=== PATIENT | male | born 1930 | race Two or more races ===

== ENCOUNTER 2018-03-18 17:02 | Inpatient (IN) | payer MEDICARE, MEDICAID ==
[~2018-03-18] VITALS: Ht 170.2 cm; Wt 74.8 kg
--- NOTE | 2018-03-18 17:08 | NUR ---
BIBRA FOR SYNCOPAL EPISODE AT HOME X 2. ABRASION NOTED TO FOREHEAD. TO ER BED 8, HOOKED TO MONITOR, CHANGED TO GOWN, AWAITING MD JAMES
--- NOTE | 2018-03-18 17:25 | NUR ---
DR NEWTON AT BEDSIDE
[2018-03-18 17:29] LABS: BASOPHILS % (AUTO) 0.5 % (0.0-2.0); EOSINOPHILS % (AUTO) 0.1 % (0.0-6.0); HEMATOCRIT 39 % (39-51); HEMOGLOBIN 13.1 g/dL (13.5-17.5); LYMPHOCYTES # (AUTO) 0.5 /CMM (0.8-4.8); LYMPHOCYTES % (AUTO) 6.3 % (20.0-44.0); MEAN CORPUSCULAR HGB CONC 34 g/dl (31.0-36.0); MEAN CORPUSCULAR VOLUME 86 fL (80-96); MONOCYTES # (AUTO) 0.4 /CMM (0.1-1.30); NEUTROPHILS # (AUTO) 7.3 /CMM (1.8-8.9); NEUTROPHILS % (AUTO) 88.1 % (43.0-81.0); PLATELET COUNT (AUTO) 190 /CMM (150-450); RED BLOOD CELL COUNT(AUTO) 4.52 MIL/uL (4.5-6.0); WHITE BLOOD COUNT (AUTO) 8.3 K/uL (4.3-11.0)
[2018-03-18] MEDS ORDERED: IV NS 0.9% 500 ML BAG IV ONE (17:30)
[2018-03-18 17:35] LABS: CALCIUM, SERUM 9.1 mg/dL (8.5-10.1); CARBON DIOXIDE 27 mmol/L (21-32); CHLORIDE 100 mmol/L (98-107); CREATININE 1.2 mg/dL (0.6-1.3); GLUCOSE 110 mg/dL (74-106); POTASSIUM 3.9 mmol/L (3.5-5.1); SODIUM SERUM 137 mmol/L (136-145); UREA NITROGEN, BLOOD 41 mg/dL (7-18)
[2018-03-18 17:49] LABS: ALANINE AMINOTRANSFERASE 97 U/L (12-78); ALBUMIN 2.8 g/dL (3.4-5.0); ALKALINE PHOSPHATASE 149 U/L (46-116); ASPARTATE AMINOTRANSFERASE 108 U/L (15-37); BILIRUBIN,DIRECT 0.4 mg/dL (0.0-0.2); BILIRUBIN,TOTAL 1.7 mg/dL (0.2-1.0)
[2018-03-18] MEDS ORDERED: IOHEXOL-300 100 ML VIAL IV ONE (17:58)
[2018-03-18] MEDS ORDERED: IV NS 0.9% 250 ML IV ONE (17:58)
[2018-03-18] MEDS ORDERED: CT SWABBABLE VALVE TRANS SET 1 EA INFUS.SET MC ONE (17:58)
[2018-03-18] MEDS ORDERED: IV NS 0.9% 1,000 ML BAG IV ONE (18:30)
[2018-03-18] MEDS ORDERED: PIPERACILLIN /TAZOBACTAM 3.375 G VIAL IV ONE (19:28)
[2018-03-18] MEDS ORDERED: PIPERACILLIN /TAZOBACTAM 3.375 G in IV D5W 50 ML IV ONE (19:30)
--- NOTE | 2018-03-18 19:30 | NUR ---
REPORT GIVEN TO NATASHA TORRES FOR MONIKA
--- NOTE | 2018-03-18 19:35 | NUR ---
Received pt from BRIAN Quintana. Pt is resting comfortably, family at BS to tanslate. No acute distress noted at this time .
--- NOTE | 2018-03-18 19:44 | NUR ---
CALLED NURSING SUP REQUESTED TELE BED
--- NOTE | 2018-03-18 20:40 | NUR ---
Family reported pt hasn't voided since 10:00 pm last night. Took out 700 ml of juvencio colored urine through I & O per Dr. Garza's verbal order.Pt tolerated procedure.
--- NOTE | 2018-03-18 20:50 | NUR ---
Pt will be admitted to [facility] 304-1 . Pt and family members notified. Removed 700 ml of Ronni colored urine from I & O, per verbal order of Dr. Rios.
--- NOTE | 2018-03-18 21:10 | NUR ---
Report given to BRIAN Ruff.
--- NOTE | 2018-03-18 21:50 | NUR ---
transprted pt to [facility] 304-1 via gurney under ACLS protocol with Sterling. Pt left the unit in fair condition accompanied by family members. VSS
[2018-03-18 22:00] VITALS: BP 97/62
[2018-03-19] MEDS ORDERED: DEXTROSE 50%-WATER 50 ML DISP.SYRIN IV PRN
[2018-03-19 00:02] VITALS: BP 116/72
[2018-03-19] MEDS: IV NS 0.9% 1,000 ML IV PRN ×2 (00:40→19:04)
[2018-03-19] MEDS: BLOOD SUGAR DIAGNOSTIC 1 EACH STRIP IN SCH ×4 (00:40→18:29)
[2018-03-19] MEDS: PANTOPRAZOLE 40 MG VIAL IV SCH (00:42)
[2018-03-19] MEDS ORDERED: PIPERACILLIN /TAZOBACTAM 3.375 G VIAL IV ONE ×2 (00:50→05:23)
[2018-03-19] MEDS: PIPERACILLIN /TAZOBACTAM 3.375 G in IV D5W 50 ML IV SCH ×2 (00:57→05:33)
[2018-03-19 02:29] LABS: APPEARANCE,URINE CLEAR (CLEAR); BILIRUBIN,URINE 1+ (NEGATIVE); BLOOD, URINE 2+ Ery/uL (NEGATIVE); COLOR,URINE DARK YELLO (YELLOW); KETONES,URINE 1+ (NEGATIVE); LEUKOCYTE ESTERASE ,URINE NEGATIVE (NEGATIVE); NITRITE, URINE NEGATIVE (NEGATIVE); PH,URINE 6.5 (5.0-8.0); PROTEIN,URINE 1+ mg/dl (NEGATIVE); UGLUCOSE NEGATIVE (NEGATIVE)
[2018-03-19 02:34] LABS: BACTERIA,URINE Rare /HPF (None Seen)
[2018-03-19 02:35] LABS: SQUAMOUS EPITHELIAL CELL,UR Rare /HPF (None Seen); WBC,URINE 21-50 /HPF (0-3)
[2018-03-19 04:00] VITALS: BP_SYST 104; BP_SYST 132; BP_DIAS 58; BP_DIAS 62
--- NOTE | 2018-03-19 06:25 | NUR ---
METHODS SPECIALIST NOTES AWAKE & RESPONSIVE. NOT IN ANY DISTRESS. NO SOB NOTED. DENIES ANY PAIN OR DISCOMFORT AT THIS TIME. ON TELE AFIB @ 80S WITH IVF INFUSING WELL. AM CARE DONE. MONITORED ACCORDINGLY. CALL LIGHT WITHIN REACH. BED IN LOWEST POSITION. SR UP X 3 WITH BED ALARM ON FOR SAFETY. WILL ENDORSE TO NEXT SHIFT.
--- NOTE | 2018-03-19 07:15 | NUR ---
TELE/RN OPENING NOTE THE PATIENT IS RECEIVED AWAKE IN BED. ALERT AND ORIENTED X1. REORIENTATION AND REDIRECTION PROVIDED. IN ROOM AIR AND DENIES SOB. RESPIRATION REGULAR AND UNLABORED. DENIES PAIN. EXTERNAL TELE MONITOR READING IS AFIB WITH PVC 88. THE PATIENT IN NO APPARENT DISTRESS. IV FLUID INFUSING AT 125ML/HR AND NO S/S INFILTRATION NOTED. BED LOW AND LOCKED. SIDE RAILS UP X3. CALL LIGHT WITHIN REACH. WILL CONTINUE TO MONITOR.
[2018-03-19 08:00] VITALS: BP 109/64
[2018-03-19] MEDS ORDERED: LEVO50TA8 PO (09:19)
[2018-03-19] MEDS ORDERED: DUTA0.5C15 PO (09:19)
[2018-03-19] MEDS ORDERED: PRAM0.253 PO (09:19)
[2018-03-19] MEDS ORDERED: LORA0.5T PO (09:19)
[2018-03-19] MEDS ORDERED: BUSP10TA3 PO (09:19)
[2018-03-19] MEDS ORDERED: ESOM40CA52 PO (09:19)
[2018-03-19] MEDS ORDERED: ALBU18HF2 INH (09:19)
[2018-03-19] MEDS ORDERED: CHOL100044 PO (09:19)
[2018-03-19] MEDS ORDERED: ISOS60TA4 PO (09:19)
[2018-03-19] MEDS ORDERED: ROSU5TAB12 PO (09:19)
[2018-03-19] MEDS ORDERED: ATEN25TA PO (09:19)
[2018-03-19] MEDS ORDERED: TAMS0.4C34 PO (09:19)
[2018-03-19] MEDS ORDERED: DOCU250C14 PO (09:19)
[2018-03-19] MEDS ORDERED: RIVA10TA PO (09:19)
[2018-03-19] MEDS ORDERED: ZOLP10TA6 PO (09:27)
[2018-03-19] MEDS ORDERED: LEVO500T90 PO (09:27)
--- NOTE | 2018-03-19 09:45 | NUR ---
TELE/RN NOTE PER CEMENTER HELPER MARY THE PATIENT IS PLACED NPO AFTER BREAKFAST DUE TO HIDA SCAN. NOTED AND CARRIED OUT.
[2018-03-19] MEDS: TAMSULOSIN 0.4 MG CAP.SR.24H PO SCH (10:00)
[2018-03-19] MEDS: CHOLECALCIFEROL 1,000 UNIT TABLET (VIT D3) PO SCH (10:00)
[2018-03-19] MEDS: LEVOTHYROXINE SODIUM 50 MCG TABLET PO SCH (10:00)
[2018-03-19] MEDS ORDERED: LORAZEPAM 0.5 MG TABLET PO PRN (10:00)
[2018-03-19] MEDS: DUTASTERIDE (0.5 MG) 0.5 MG CAPSULE PO SCH (10:00)
[2018-03-19] MEDS ORDERED: ALBUTEROL FS 2.5 MG/3 ML VIAL.NEB IH PRN (10:00)
[2018-03-19] MEDS: PRAMIPEXOLE DI-HCL 0.25 MG TABLET PO SCH ×2 (10:00→18:29)
[2018-03-19] MEDS: ATENOLOL 25 MG TABLET PO SCH (10:00)
[2018-03-19] MEDS ORDERED: Medication Not On Formulary EA (Esomeprazole Magnesium 40 MG) PO SCH (10:00)
[2018-03-19] MEDS ORDERED: DOCUSATE SODIUM 250 MG CAPSULE PO PRN (10:00)
--- NOTE | 2018-03-19 10:30 | NUR ---
MS/RN NOTE MATERIALS MANAGEMENT SUPERVISOR MARY IS MADE AWARE OF TROPONIN LEVEL OF 0.438. PER MATERIALS MANAGEMENT SUPERVISOR NO NEW ORDER. THE PATIENT MAINTAINS BASELINE MENTAL STATUS. DENIES ANY PAIN/DISCOMFORT. IN ROOM AIR AND SATURATION AT 97%. RESPIRATION REGULAR AND UNLABORED. WILL CONTINUE TO MONITOR.
[2018-03-19] MEDS: PIPERACILLIN /TAZOBACTAM 3.375 G in IV D5W 100 ML IV SCH ×2 (12:13→21:01)
--- NOTE | 2018-03-19 15:29 | NUR ---
MS/RN NOTE RECEIVED ORDER FROM PANFILO HERNANDEZ FOR [facility] SOFT DIET. THE ORDER IS READ BACK, VERIFIED. NOTED AND CARRIED OUT.
--- NOTE | 2018-03-19 15:43 | NUR ---
MS/RN NOTE RECEIVED ORDER FROM PANFILO HERNANDEZ FOR TYLENOL 650 MG Q6HR PRN PO. READ BACK, VERIFIED. NOTED AND CARRIED OUT.
[2018-03-19 16:00] VITALS: BP 110/68
[2018-03-19] MEDS: ACETAMINOPHEN 325 MG TABLET PO PRN (16:04)
[2018-03-19] MEDS: busPIRone 5 MG TABLET PO SCH (16:04)
--- NOTE | 2018-03-19 18:58 | NUR ---
MS/RN CLOSING NOTE THE PATIENT ALERT AND ORIENTED X2. IN ROOM AIR AND SATURATION AT 97%. DENIES SOB. DENIES PAIN. RFA G 18 AND LFA G 20 PATENT AND SALINE LOCKED. GOOD AND GENTLE SKIN CARE PROVIDED. KEPT CLEAN AND COMFORTABLE. ALL NEEDS ATTENDED. BED LOW AND LOCKED. SIDE RAILS UP X3. CALL LIGHT WITHIN REACH. WILL ENDORSE TO MOTOR COACH DRIVER.
--- NOTE | 2018-03-19 19:30 | NUR ---
MS/RN OPENING NOTES PT WITH EYES CLOSED, OPENS EYES TO NAME. RESTING COMFORTABLY IN BED. QATARI SPEAKING. CONFUSED. ON ROOM AIR, BREATHING EVEN AND UNLABORED. NO S/S OF SOB OR PAIN. IN NO ACUTE DISTRESS. IV TO LFA AND RFA PATENT AND INTACT RUNNING IVF ORDERED. BED IN LOW/LOCKED POSITION WITH CALL LIGHT IN REACH, UPPER SIDE RAILS IN PLACE. BED ALARM ON FOR SAFETY. WILL CONTINUE TO MONITOR
[2018-03-19 20:00] VITALS: BP 106/58
[2018-03-20] MEDS: BLOOD SUGAR DIAGNOSTIC 1 EACH STRIP IN SCH ×5 (00:26→23:07)
[2018-03-20] MEDS: PANTOPRAZOLE 40 MG VIAL IV SCH (00:56)
[2018-03-20] MEDS: PIPERACILLIN /TAZOBACTAM 3.375 G in IV D5W 100 ML IV SCH ×2 (04:48→13:16)
[2018-03-20 06:37] LABS: BASOPHILS % (AUTO) 0.5 % (0.0-2.0); EOSINOPHILS % (AUTO) 1.3 % (0.0-6.0); HEMATOCRIT 39 % (39-51); LYMPHOCYTES # (AUTO) 0.7 /CMM (0.8-4.8); LYMPHOCYTES % (AUTO) 7.6 % (20.0-44.0); MEAN CORPUSCULAR HGB CONC 34 g/dl (31.0-36.0); MEAN CORPUSCULAR VOLUME 85 fL (80-96); MONOCYTES # (AUTO) 0.4 /CMM (0.1-1.30); MONOCYTES % (AUTO) 4.5 % (2.0-12.0); NEUTROPHILS # (AUTO) 7.5 /CMM (1.8-8.9); NEUTROPHILS % (AUTO) 86.1 % (43.0-81.0); PLATELET COUNT (AUTO) 276 /CMM (150-450); RED BLOOD CELL COUNT(AUTO) 4.52 MIL/uL (4.5-6.0); WHITE BLOOD COUNT (AUTO) 8.8 K/uL (4.3-11.0)
[2018-03-20 06:52] LABS: ALANINE AMINOTRANSFERASE 79 U/L (12-78); ALBUMIN 2.4 g/dL (3.4-5.0); ALKALINE PHOSPHATASE 185 U/L (46-116); ASPARTATE AMINOTRANSFERASE 47 U/L (15-37); BILIRUBIN,TOTAL 1.2 mg/dL (0.2-1.0); CALCIUM, SERUM 8.6 mg/dL (8.5-10.1); CARBON DIOXIDE 26 mmol/L (21-32); CHLORIDE 109 mmol/L (98-107); CREATININE 0.8 mg/dL (0.6-1.3); GLUCOSE 86 mg/dL (74-106); MAGNESIUM 1.9 mg/dL (1.8-2.4); PHOSPHORUS 1.8 mg/dL (2.5-4.9); POTASSIUM 2.9 mmol/L (3.5-5.1); SODIUM SERUM 147 mmol/L (136-145); UREA NITROGEN, BLOOD 23 mg/dL (7-18)
[2018-03-20 06:55] LABS: FREE PSA 0.77 ng/mL (0.00-45); PROSTATE SPECIFIC ANTIGEN SCR 8.02 ng/mL (0.00-4.00); THYROID STIMULATING HORMONE 6.18 uIU/mL (0.358-3.74)
--- NOTE | 2018-03-20 07:17 | NUR ---
MS/RN CLOSING NOTES PT RESTING COMFORTABLY IN BED. MONEGASQUE SPEAKING. CONFUSED. ON ROOM AIR, BREATHING EVEN AND UNLABORED. NO S/S OF SOB OR PAIN. IN NO ACUTE DISTRESS. IV TO LFA INFILTRATED, IV TO RFA PATENT AND INTACT RUNNING IVF ORDERED. NO SIGNIFICANT CHANGES OVERNIGHT. ALL NEEDS MET. BED IN LOW/LOCKED POSITION WITH CALL LIGHT IN REACH, UPPER SIDE RAILS IN PLACE. BED ALARM ON FOR SAFETY. ENDORSED TO DAY SHIFT RN MONIKA.
[2018-03-20 08:00] VITALS: BP 128/66
[2018-03-20] MEDS: busPIRone 5 MG TABLET PO SCH ×2 (08:48→17:35)
[2018-03-20] MEDS: DUTASTERIDE (0.5 MG) 0.5 MG CAPSULE PO SCH (08:48)
[2018-03-20] MEDS: POTASSIUM CHLORIDE 20 MEQ TAB.PRT.SR PO SCH ×3 (08:48→10:30)
[2018-03-20] MEDS: TAMSULOSIN 0.4 MG CAP.SR.24H PO SCH (08:48)
[2018-03-20] MEDS: LEVOTHYROXINE SODIUM 50 MCG TABLET PO SCH (08:48)
[2018-03-20] MEDS: CHOLECALCIFEROL 1,000 UNIT TABLET (VIT D3) PO SCH (08:48)
[2018-03-20] MEDS: NEUTRA PHOS 1 POWD.PACKET PO SCH ×2 (08:49→17:35)
[2018-03-20] MEDS: ATENOLOL 25 MG TABLET PO SCH (08:49)
[2018-03-20] MEDS: Potassium Chloride 20 MEQ in IV D5/0.45 NACL 1,000 ML IV PRN (12:46)
[2018-03-20 16:00] VITALS: BP 133/86
--- NOTE | 2018-03-20 16:04 | NUR ---
MS/RN NOTE RECEIVED ORDER FROM PANFILO HERNANDEZ FOR WILLIAMS. THE ORDER IS READ BACK, VERIFIED. NOTED AND CARRIED OUT.
[2018-03-20] MEDS ORDERED: MAGNESIUM HYDROXIDE 30 ML UDC PO PRN (16:30)
[2018-03-20] MEDS: PRAMIPEXOLE DI-HCL 0.25 MG TABLET PO SCH (17:35)
--- NOTE | 2018-03-20 18:02 | NUR ---
MS/RN NOTE THE PATIENT ALERT AND ORIENTED X2. DENIES PAIN AT THIS TIME. IN ROOM AIR AND SATURATION IS AT 95%. DENIES SOB AT THIS TIME. RFA G 18 AND LFA G 20 PATENT AND MEDICATIONS ARE INFUSING PER ORDER. NO S/S INFILTRATION NOTED. GOOD AND GENTLE SKIN CARE RENDERED. KEPT CLEAN, DRY AND COMFORTABLE. ALL NEEDS ATTENDED AND ANTICIPATED. BED LOW AND LOCKED. SIDE RAILS UP X3. CALL LIGHT WITHIN REACH. WILL ENDORSE TO STAFFING ASSISTANT.
--- NOTE | 2018-03-20 19:30 | NUR ---
MS/RN OPENING NOTES PT AWAKE. RESTING COMFORTABLY IN BED. CYMRO SPEAKING. A/X2. ON ROOM AIR, BREATHING EVEN AND UNLABORED. NO S/S OF SOB OR PAIN. IN NO ACUTE DISTRESS. IV TO LFA AND RFA PATENT AND INTACT RUNNING IVF ORDERED. BED IN LOW/LOCKED POSITION WITH CALL LIGHT IN REACH, UPPER SIDE RAILS IN PLACE. BED ALARM ON FOR SAFETY. WILL CONTINUE TO MONITOR
[2018-03-20 20:00] VITALS: BP 101/82
[2018-03-20] MEDS: ZOLPIDEM TARTRATE 10 MG TABLET PO PRN (23:07)
[2018-03-21] MEDS: PANTOPRAZOLE 40 MG VIAL IV SCH (00:21)
[2018-03-21] MEDS: LORAZEPAM 1 MG TABLET PO PRN (00:21)
[2018-03-21 06:04] LABS: BASOPHILS % (AUTO) 0.6 % (0.0-2.0); EOSINOPHILS % (AUTO) 1.7 % (0.0-6.0); HEMATOCRIT 38 % (39-51); HEMOGLOBIN 12.7 g/dL (13.5-17.5); LYMPHOCYTES % (AUTO) 13.4 % (20.0-44.0); MEAN CORPUSCULAR HGB CONC 34 g/dl (31.0-36.0); MEAN CORPUSCULAR VOLUME 85 fL (80-96); MONOCYTES # (AUTO) 0.5 /CMM (0.1-1.30); MONOCYTES % (AUTO) 7.4 % (2.0-12.0); NEUTROPHILS # (AUTO) 5.5 /CMM (1.8-8.9); NEUTROPHILS % (AUTO) 76.9 % (43.0-81.0); PLATELET COUNT (AUTO) 263 /CMM (150-450); RED BLOOD CELL COUNT(AUTO) 4.46 MIL/uL (4.5-6.0); WHITE BLOOD COUNT (AUTO) 7.1 K/uL (4.3-11.0)
[2018-03-21 06:05] LABS: ALANINE AMINOTRANSFERASE 74 U/L (12-78); ALBUMIN 2.2 g/dL (3.4-5.0); ALKALINE PHOSPHATASE 246 U/L (46-116); ASPARTATE AMINOTRANSFERASE 47 U/L (15-37); CALCIUM, SERUM 8.6 mg/dL (8.5-10.1); CARBON DIOXIDE 27 mmol/L (21-32); CHLORIDE 107 mmol/L (98-107); CREATININE 0.7 mg/dL (0.6-1.3); GLUCOSE 117 mg/dL (74-106); MAGNESIUM 1.8 mg/dL (1.8-2.4); PHOSPHORUS 1.9 mg/dL (2.5-4.9); POTASSIUM 3.4 mmol/L (3.5-5.1); SODIUM SERUM 142 mmol/L (136-145); TOTAL PROTEIN, SERUM 5.7 g/dL (6.4-8.2); UREA NITROGEN, BLOOD 19 mg/dL (7-18)
[2018-03-21] MEDS: BLOOD SUGAR DIAGNOSTIC 1 EACH STRIP IN SCH ×3 (06:35→17:23)
[2018-03-21] MEDS: Potassium Chloride 20 MEQ in IV D5/0.45 NACL 1,000 ML IV PRN (06:35)
--- NOTE | 2018-03-21 06:35 | NUR ---
MS/RN CLOSING NOTES PT RESTING COMFORTABLY IN BED. ON ROOM AIR, BREATHING EVEN AND UNLABORED. DENIES SOB, NO SOB NOTED. IN NO ACUTE DISTRESS. SLEPT WELL DURING SHIFT. IV TO RFA PATENT AND INTACT RUNNING IVF ORDERED. NO SIGNIFICANT CHANGES OVERNIGHT. ALL NEEDS MET. BED IN LOW/LOCKED POSITION WITH CALL LIGHT IN REACH. SIDE RIALS UPX2. WILL ENDORSE TO DAY SHIFT RN MONIKA.
--- NOTE | 2018-03-21 07:49 | NUR ---
MS RN OPENING NOTES RECEIVED PATIENT IN STABLE CONDITION. IN NO APPARENT DISTRESS. BEDSIDE RAILS ARE UPX2. BED IS LOCKED AND LOWERED. CALL LIGHT IS WITHIN REACH. IV LINE IS INTACT AND PATENT. WILL CONTINUE TO MONITOR PATIENT.
[2018-03-21 08:00] VITALS: BP 128/74
[2018-03-21] MEDS ORDERED: POTASSIUM CHLORIDE 20 MEQ TAB.PRT.SR PO SCH (08:00)
[2018-03-21] MEDS: busPIRone 5 MG TABLET PO SCH ×2 (09:03→17:18)
[2018-03-21] MEDS: CHOLECALCIFEROL 1,000 UNIT TABLET (VIT D3) PO SCH (09:03)
[2018-03-21] MEDS: ATENOLOL 25 MG TABLET PO SCH (09:04)
[2018-03-21] MEDS: TAMSULOSIN 0.4 MG CAP.SR.24H PO SCH (09:04)
[2018-03-21] MEDS: LEVOTHYROXINE SODIUM 50 MCG TABLET PO SCH (09:04)
[2018-03-21] MEDS: FERROUS SULFATE (325 MG) 325 MG/TAB TABLET PO SCH ×2 (09:04→17:18)
[2018-03-21] MEDS: DUTASTERIDE (0.5 MG) 0.5 MG CAPSULE PO SCH (09:04)
[2018-03-21] MEDS: RIVAROXABAN 15 MG TABLET PO SCH (09:07)
[2018-03-21] MEDS: NEUTRA PHOS 1 POWD.PACKET PO SCH ×2 (09:08→15:46)
[2018-03-21] MEDS ORDERED: NEUTRA PHOS 1 POWD.PACKET PO ONE (09:30)
[2018-03-21] MEDS: INSULIN REGULAR, HUMAN 100 UNIT/ML 3 ML VIAL SQ PRN (12:24)
[2018-03-21 13:08] LABS: AFP, TUMOR MARKER 1.4 ng/mL (0.0-8.3)
[2018-03-21 16:00] VITALS: BP 116/66
[2018-03-21] MEDS: PRAMIPEXOLE DI-HCL 0.25 MG TABLET PO SCH (17:18)
--- NOTE | 2018-03-21 18:23 | NUR ---
MS RN CLOSING NOTES PATIENT IS IN STABLE CONDITION. IN NO APPARENT DISTRESS. BEDSIDE RAILS ARE UPX2. BED IS LOCKED AND LOWERED. CALL LIGHT IS WITHIN REACH. IV LINE IS INTACT AND PATENT. ALL NEEDS WERE MET. WILL ENDORSE CARE TO SALON SUPERVISOR NURSE FOR MONIKA.
--- NOTE | 2018-03-21 19:30 | NUR ---
MS RN NOTE: PATIENT RESTING IN BED, NO ACUTE DISTRESS NOTED. BREATHING EVEN AND UNLABORED, NO SOB NOTED. IV TO LFA IN PLACE. BED LOCKED AND IN LOWEST POSITION, CALL LIGHT IN REACH. WILL CONTINUE TO MONITOR.
[2018-03-21 20:00] VITALS: BP 125/72
[2018-03-21] MEDS: ZOLPIDEM TARTRATE 10 MG TABLET PO PRN (22:06)
--- NOTE | 2018-03-21 22:15 | NUR ---
MS RN NOTE: PATIENT REQUESTING FOR SLEEPING MEDICATION, AMBIEN 10MG 1 TAB ORAL GIVEN PER MD ORDER. WILL CONTINUE TO MONITOR.
[2018-03-22] MEDS: BLOOD SUGAR DIAGNOSTIC 1 EACH STRIP IN SCH ×4 (00:17→17:07)
[2018-03-22] MEDS: LORAZEPAM 1 MG TABLET PO PRN (00:17)
--- NOTE | 2018-03-22 00:30 | NUR ---
MS RN NOTE: PATIENT ANXIOUS AND REQUEST FOR MEDICATIONS. ATIVAN 1MG ORAL GIVEN PER MD ORDER. WILL CONTINUE TO MONITOR.
[2018-03-22] MEDS: Potassium Chloride 20 MEQ in IV D5/0.45 NACL 1,000 ML IV PRN (01:13)
--- NOTE | 2018-03-22 06:05 | NUR ---
MS RN NOTE: PATIENT RESTING IN BED, NO ACUTE DISTRESS NOTED. BREATHING EVEN AND UNLABORED, NO SOB NOTED. IV TO LFA IN PLACE. PATIENT BLOOD SUGAR LEVEL 97MG/DL, NO INSULIN NEEDED PER SLIDING SCALE. BED LOCKED AND IN LOWEST POSITION, CALL LIGHT IN REACH. WILL ENDORSE TO NURSE TO CONTINUE WITH PLAN OF CARE.
[2018-03-22 06:27] LABS: BASOPHILS # (AUTO) 0.1 /CMM (0.0-0.2); BASOPHILS % (AUTO) 0.8 % (0.0-2.0); EOSINOPHILS % (AUTO) 2.2 % (0.0-6.0); HEMATOCRIT 38 % (39-51); HEMOGLOBIN 12.8 g/dL (13.5-17.5); LYMPHOCYTES # (AUTO) 1.1 /CMM (0.8-4.8); LYMPHOCYTES % (AUTO) 16.6 % (20.0-44.0); MEAN CORPUSCULAR HGB CONC 33 g/dl (31.0-36.0); MEAN CORPUSCULAR VOLUME 85 fL (80-96); MONOCYTES # (AUTO) 0.5 /CMM (0.1-1.30); MONOCYTES % (AUTO) 7.3 % (2.0-12.0); NEUTROPHILS # (AUTO) 4.9 /CMM (1.8-8.9); NEUTROPHILS % (AUTO) 73.1 % (43.0-81.0); PLATELET COUNT (AUTO) 319 /CMM (150-450); RED BLOOD CELL COUNT(AUTO) 4.48 MIL/uL (4.5-6.0); WHITE BLOOD COUNT (AUTO) 6.7 K/uL (4.3-11.0)
[2018-03-22 06:33] LABS: CALCIUM, SERUM 8.3 mg/dL (8.5-10.1); CARBON DIOXIDE 26 mmol/L (21-32); CHLORIDE 107 mmol/L (98-107); CREATININE 0.6 mg/dL (0.6-1.3); GLUCOSE 110 mg/dL (74-106); POTASSIUM 3.8 mmol/L (3.5-5.1); SODIUM SERUM 142 mmol/L (136-145); UREA NITROGEN, BLOOD 17 mg/dL (7-18)
--- NOTE | 2018-03-22 07:25 | NUR ---
MS RN OPENING NOTE RECEIVED PT IN BED SLEEPING. BREATHING IS EVEN AND UNLABORED ON ROOM AIR, NO ACUTE DISTRESS NOTED AT THIS TIME. L FA #20G IV IS INFUSING D5 1/2 NS W/ 20 MEQ KCL @ 125ML/HR WITHOUT REDNESS OR SWELLING. ALL NEEDS ATTENDED TO. BED IS LOCKED AND IN LOWEST POSITION, SIDE RAILS UP X2, BED ALARM LINUX SYSTEM ADMINISTRATOR LIGHT AND POSSESSIONS WITHIN REACH.
[2018-03-22 08:00] VITALS: BP 123/79
[2018-03-22] MEDS: ATENOLOL 25 MG TABLET PO SCH (09:04)
[2018-03-22] MEDS: DUTASTERIDE (0.5 MG) 0.5 MG CAPSULE PO SCH (09:04)
[2018-03-22] MEDS: busPIRone 5 MG TABLET PO SCH ×2 (09:04→17:07)
[2018-03-22] MEDS: FERROUS SULFATE (325 MG) 325 MG/TAB TABLET PO SCH (09:04)
[2018-03-22] MEDS: CHOLECALCIFEROL 1,000 UNIT TABLET (VIT D3) PO SCH (09:04)
[2018-03-22] MEDS: LEVOTHYROXINE SODIUM 50 MCG TABLET PO SCH (09:04)
[2018-03-22] MEDS: TAMSULOSIN 0.4 MG CAP.SR.24H PO SCH (09:04)
--- NOTE | 2018-03-22 10:14 | NUR ---
MS RN NOTE SPOKE WITH ROSARIO REGARDING PT D/C. DAUGHTER PREFERS THAT PT GO TO SNF FOR REHABILITATION PRIOR TO D/C HOME. INFORMED MAMI IN CASE MANAGEMENT.
--- NOTE | 2018-03-22 11:48 | NUR ---
MS RN NOTE INFORMED NICHO ARMIJO IN CASE MANAGEMENT REGARDING FAMILY PREFERENCE FOR PT TO BE TRANSFERED TO [facility].
[2018-03-22] MEDS: INSULIN REGULAR, HUMAN 100 UNIT/ML 3 ML VIAL SQ PRN ×2 (12:00→17:19)
--- NOTE | 2018-03-22 12:00 | NUR ---
MS RN ACCU CHECK BS IS 161 HOWEVER PT STATED THAT HE DOES NOT WANT TO EACH LUNCH RIGHT NOW AND WANTS TO SLEEP. SLIDING SCALE INSULIN HELD.
[2018-03-22] MEDS: ACETAMINOPHEN 325 MG TABLET PO PRN (13:30)
[2018-03-22] MEDS ORDERED: SOD FERRIC GLUC 125 MG in IV NS 0.9% 100 ML IV SCH (14:00)
--- NOTE | 2018-03-22 15:04 | NUR ---
MS RN NOTE INFORMED DAUGHTER ROSARIO OF PT TRANSFER TO [facility] AND TALCER TIME OF 5:30 REQUESTED.
--- NOTE | 2018-03-22 15:45 | NUR ---
MS RN REPORT GIVEN REPORT GIVEN TO BRIAN PACHECO REGISTERED DENTAL ASSISTANT FOR TRANSFER OF CARE TO [facility]. DISCUSSED PT DX, CODE, STATUS, NKA, ORIENTATION, AMBULATORY STATUS, SKIN. DISCUSSED NEGATIVE HIDA, BONE SCAN, HEAD CT, CERVICAL CT. INFORMED TARA THAT THE NURSE WILL ADMINISTER MEDICATION XARLETO 15MG, BUSPAR 10MG, AND MIRAPEX 0.25MG PRIOR TO PT TRANSFER AND PROVIDE TIME FOR ADLS. PROVIDED CALL BACK NUMBER FOR ANY QUESTIONS.
[2018-03-22 16:00] VITALS: BP 131/75
[2018-03-22] MEDS: PRAMIPEXOLE DI-HCL 0.25 MG TABLET PO SCH (17:07)
[2018-03-22] MEDS: RIVAROXABAN 15 MG TABLET PO SCH (17:19)
--- NOTE | 2018-03-22 17:25 | NUR ---
MS RN NOTE BS: 85. NO INSULIN GIVEN. PT STATES HE DOES NOT WANT TO EAT DINNER, EXPLAINED RISKS AND BENEFITS TO PT AND FAMILY AT THE BEDSIDE. PT AGREEABLE TO DRINKING 1 BOX OF ORANGE JUICE.
--- NOTE | 2018-03-22 18:14 | NUR ---
MS RN PATIENT DISCHARGED PT DISCHARGED TO [facility]ANCH IN MEDICALLY STABLE CONDITION. REPORT GIVEN TO BRIAN PACHECO ACADEMIC AFFAIRS DIRECTOR FOR CONTINUITY OF CARE. PT IS ALERT AND ORIENTED X1-2, REFRACTABLE, PRIMARILY GAMBIAN SPEAKING BUT ABLE TO FOLLOW DIRECTIONS AND COMMUNICATE BASIC NEEDS IN [place]. NO ACUTE DISTRESS NOTED AT THIS TIME, BREATHING IS EVEN AND UNLABORED ON ROOM AIR. R HAND PERIPHERAL IV REMOVED WITH CATHETER TIP INTACT. WOUND DOCUMENTATION COMPLETED PER PROTOCOL. DISCHARGE PAPERWORK AND EDUCATION PROVIDED PER PROTOCOL. ALL BELONGINGS ACCOUNTED FOR AND BELONGINGS LIST SIGNED AND PLACED IN CHART. ADLS PROVIDED PRIOR TO TRANSFER, FAMILY AT THE BEDSIDE AND AGREEABLE TO TRANSFER REPORT GIVEN TO AMBULANCE STAFF FOR TRANSFER OF CARE.
[2018-03-23 11:10] LABS: *SPE A/G RATIO 0.9 (0.7-1.7); *SPE ALBUMIN 2.5 g/dL (2.9-4.4); *SPE ALPHA-1-GLOBULIN 0.4 g/dL (0.0-0.4); *SPE ALPHA-2-GLOBULIN 0.9 g/dL (0.4-1.0); *SPE BETA GLOBULIN 0.7 g/dL (0.7-1.3); *SPE GLOBULIN, TOTAL 2.7 g/dL (2.2-3.9); *SPE M-SPIKE 0.4 g/dL (Not Observed); *SPEGAMMA GLOBULIN 0.7 g/dL (0.4-1.8)
== END 2018-03-22 18:15 | DRG 640 ==
LOC: ER 17:04 → TELE 20:52 → MED 03-19 10:26
PROVIDERS: ADMIT Nurse Practitioner Acute Care; ATTEND Nurse Practitioner Acute Care
DX: E86.0 Dehydration (principal); I21.A1 Myocardial infarction type 2; E44.0 Moderate protein-calorie malnutrition; N39.0 Urinary tract infection, site not specified; I50.32 Chronic diastolic (congestive) heart failure; E87.2 Acidosis; E87.0 Hyperosmolality and hypernatremia; I48.91 Unspecified atrial fibrillation; D64.9 Anemia, unspecified; E03.9 Hypothyroidism, unspecified; E66.3 Overweight; E83.39 Other disorders of phosphorus metabolism; E87.6 Hypokalemia; F41.9 Anxiety disorder, unspecified; I48.2 Chronic atrial fibrillation; Z86.718 Personal history of other venous thrombosis and embolism; Z79.01 Long term (current) use of anticoagulants; Z87.891 Personal history of nicotine dependence; E88.09 Other disorders of plasma-protein metabolism, not elsewhere classified; R74.0 Nonspecific elevation of levels of transaminase and lactic acid dehydrogenase [LDH]; Z68.25 Body mass index [BMI] 25.0-25.9, adult; R55 Syncope and collapse; K76.89 Other specified diseases of liver; K57.30 Diverticulosis of large intestine without perforation or abscess without bleeding; D50.9 Iron deficiency anemia, unspecified; N40.1 Benign prostatic hyperplasia with lower urinary tract symptoms; W19.XXXA Unspecified fall, initial encounter; Y93.9 Activity, unspecified; Y92.009 Unspecified place in unspecified non-institutional (private) residence as the place of occurrence of the external cause; I95.9 Hypotension, unspecified
CPT/HCPCS: 36415; 70450-TC; 71045-TC; 72125-TC; 76705-TC; 78226; 78306-TC; 80048-TC; 80053-TC; 80076-TC; 81000-TC; 82105; 82378; 82728-TC; 82784; 82962-TC; 83540-TC; 83605-TC; 83735-TC; 83880; 84100-TC; 84153-TC; 84154-TC; 84155; 84165; 84443-TC; 84484-TC; 85025-TC; 85730-TC; 86301; 86334; 87040-TC; 87081-TC; 87086-TC; 87400; 93307-TC; 93970-TC; A9503; A9537; C9113; G0378; J1815; J2543; J2916; J3480; J3490; J7030; J7040; J7050; J7060; Q9967

== ENCOUNTER 2018-04-23 07:51 | Outpatient (CLI) | payer MEDICARE, MEDICAID ==
[~2018-04-23 07:51] MED LIST: ALBU18HF2 INH; ATEN25TA PO; BUSP10TA3 PO; CHOL100044 PO; DOCU250C14 PO; DUTA0.5C15 PO; ESOM40CA52 PO; ISOS60TA4 PO; LEVO500T90 PO; LEVO50TA8 PO; LORA0.5T PO; PRAM0.253 PO; RIVA10TA PO; ROSU5TAB12 PO; TAMS0.4C34 PO; ZOLP10TA6 PO
[2018-04-23] MEDS ORDERED: GADODIAMIDE 2.5 MMOL/5 ML VIAL IJ ONE (17:59)
== END 2018-04-23 23:59 | disposition home or self-care (01) ==
LOC: MRI 07:51
PROVIDERS: ATTEND Internal Medicine
DX: K44.9 Diaphragmatic hernia without obstruction or gangrene (principal); K57.30 Diverticulosis of large intestine without perforation or abscess without bleeding; K76.9 Liver disease, unspecified; K86.89 Other specified diseases of pancreas; N28.9 Disorder of kidney and ureter, unspecified; N26.1 Atrophy of kidney (terminal); I70.0 Atherosclerosis of aorta; J98.11 Atelectasis; I51.7 Cardiomegaly; M47.817 Spondylosis without myelopathy or radiculopathy, lumbosacral region
CPT/HCPCS: 74183; A9579

== ENCOUNTER 2018-04-24 07:31 | Outpatient (CLI) | payer MEDICARE, MEDICAID | END 2018-04-24 23:59 | disposition home or self-care (01) | LOC: RAD 07:31 | PROVIDERS: ATTEND Internal Medicine Hematology & Oncology | DX: Z12.89 Encounter for screening for malignant neoplasm of other sites (principal); R97.20 Elevated prostate specific antigen [PSA]; K76.9 Liver disease, unspecified; I70.0 Atherosclerosis of aorta | CPT/HCPCS: 77075-TC ==

== ENCOUNTER 2018-07-03 11:42 | Outpatient (CLI) | payer MEDICARE, MEDICAID | END 2018-07-03 23:59 | disposition home or self-care (01) | LOC: LAB 11:42 | PROVIDERS: ATTEND Internal Medicine Interventional Cardiology | DX: J40 Bronchitis, not specified as acute or chronic (principal); I70.0 Atherosclerosis of aorta | CPT/HCPCS: 71046 ==

== ENCOUNTER 2018-07-17 11:02 | Outpatient (CLI) | payer MEDICARE, MEDICAID ==
[~2018-07-17 11:02] MED LIST changes: -ROSU5TAB12 PO; +ROSU5TAB13 PO
== END 2018-07-17 23:59 | disposition home or self-care (01) ==
LOC: LAB 11:02
PROVIDERS: ATTEND Internal Medicine Interventional Cardiology
DX: I70.202 Unspecified atherosclerosis of native arteries of extremities, left leg (principal); I10 Essential (primary) hypertension

== ENCOUNTER 2018-11-20 09:26 | Outpatient (CLI) | payer MEDICARE, MEDICAID ==
[~2018-11-20] VITALS: Ht 167.6 cm; Wt 68.0 kg
[2018-11-20] MEDS ORDERED: IOHEXOL-350 100 ML VIAL IV ONE (09:44)
[2018-11-20] MEDS ORDERED: IV NS 0.9% 250 ML IV ONE (09:44)
[2018-11-20] MEDS ORDERED: CT SWABBABLE VALVE TRANS SET 1 EA INFUS.SET MC ONE (09:44)
[2018-11-20 10:06] LABS: CREATININE 0.8 mg/dL (0.6-1.3); POTASSIUM 3.8 mmol/L (3.5-5.1)
[2018-11-20] MEDS ORDERED: NITROGLYCERIN 0.4 MG/TAB BOTTLE SL ONE (10:30)
[2018-11-20] MEDS ORDERED: METOPROLOL TARTRATE INJ 5 MG/5 ML AMPUL ONE ×3 (10:34→11:08)
[2018-11-20] MEDS ORDERED: NITROGLYCERIN 0.4 MG/TAB BOTTLE ONE (10:34)
[2018-11-20] MEDS: METOPROLOL TARTRATE INJ 5 MG/5 ML AMPUL IVP PRN ×5 (10:45→11:05)
[2018-11-20] MEDS ORDERED: IV NS 0.9% 500 ML IV ONE (10:46)
[2018-11-20 11:40] VITALS: BP 89/51
--- NOTE | 2018-11-20 11:40 | NUR ---
RN NOTE RECEIVED PATIENT FROM ADOBE ARCHITECT.PATIENT ALERT ORIENTED.MOZAMBICAN SPEAKING.DENIED CHEST PAIN.ON MONITOR AFIB HR 58.NO SOB NO DISTRESS NOTED .VITAL SIGNS STABLE.BED IS LOW AND IN LOCKED POSITION.CALL LIGHT IN REACH.BED ALARM ON .SAFETY MEASURES IN PLACE.WILL CONTINUE TO MONITOR.
[2018-11-20 14:00] VITALS: BP 113/55
--- NOTE | 2018-11-20 14:20 | NUR ---
NIGHT SHIFT SUPERVISOR NOTE PATIENT DISCHARGED TO HOME WITH DAUGHTER IN STABLE CONDITION. SEEN THE PATIENT AND RESULT OK TO GO HOME.TOOK ALL BELONGINGS.UMU EDUCATION GIVEN WITH EXIT CARE.PATIENT VERBALIZED UNDERSTANDING.IV REMOVED.DRESSING APPLIED.REFUSED ESCORT OUTSIDE.WENT WITH DAUGHTER.SATISFIED WITH CARE.
== END 2018-11-20 23:59 | disposition home or self-care (01) ==
LOC: CT 09:26
PROVIDERS: ATTEND Internal Medicine Interventional Cardiology
DX: J84.10 Pulmonary fibrosis, unspecified (principal); M47.814 Spondylosis without myelopathy or radiculopathy, thoracic region; I48.91 Unspecified atrial fibrillation; I10 Essential (primary) hypertension
CPT/HCPCS: 36415; 75574; 80048; J3490 ×3; J7040; J7050; Q9967